=== PATIENT | male | born 1945 | race Caucasian/White ===

== ENCOUNTER 2019-04-24 22:26 | Emergency (ER) | payer MEDICARE, OTHER ==
[~2019-04-24] VITALS: Ht 182.9 cm; Wt 63.5 kg
[~2019-04-24 22:26] MED LIST: ACET325 PO; ALBU90OI INH; AMOX875 PO; ASPI81CH PO; COMBIVENT RESPIM4 GM INH; CULTURELLE1 EACH PO; EMERGEN-C 500500 MG; FERSU90EL PO; FINA5 PO; GABA100 PO; INSULANPEN SC; LEVSOD75 PO; METCAR500 PO; MORP30 PO; Mag-Al Plus Sus30 ML PO; NYST100000 PO; Nicoderm Cq1 EAC1 TD; Novolog Fl100 UNIT/1 SQ; OXYC10TA19 PO; Omeprazole20 M1 PO; SENN187 PO
== END 2019-04-25 00:35 | disposition home or self-care (01) ==
LOC: ER 22:26
DX: R13.10 Dysphagia, unspecified (principal); E86.0 Dehydration; Z79.82 Long term (current) use of aspirin; Z79.899 Other long term (current) drug therapy; Z79.4 Long term (current) use of insulin; E11.9 Type 2 diabetes mellitus without complications; F17.210 Nicotine dependence, cigarettes, uncomplicated
CPT/HCPCS: 70360; 99283-25

== ENCOUNTER 2019-06-18 22:58 | Inpatient (IN) | payer MEDICARE, OTHER ==
[~2019-06-18] VITALS: Ht 182.9 cm; Wt 108.0 kg
[2019-06-18 23:15] LABS: BASOPHILS ABSOLUTE AUTO 0.06 K/mm3 (0.00-0.23); BASOPHILS PERCENT AUTO 1 % (0-2); EOSINOPHILS ABSOLUTE AUTO 0.28 K/mm3 (0.00-0.68); EOSINOPHILS PERCENT AUTO 3 % (0-6); Hematocrit 35.2 % (37.0-53.0); Hemoglobin 11.5 g/dL (13.5-17.5); IMMATURE GRAN ABSOLUTE AUTO 0.06 K/mm3 (0.00-0.10); IMMATURE GRAN PERCENT AUTO 1 % (0-1); LYMPHOCYTES ABSOLUTE AUTO 2.05 K/mm3 (0.84-5.20); LYMPHOCYTES PERCENT AUTO 23 % (21-46); MONOCYTES ABSOLUTE AUTO 0.96 K/mm3 (0.16-1.47); MONOCYTES PERCENT AUTO 11 % (4-13); Mean Corpuscular HGB 31.9 pg (26.0-34.0); Mean Corpuscular HGB Conc 32.7 g/dL (31.5-36.5); Mean Corpuscular Volume 98 fL (80-100); Mean Platelet Volume 9.4 fL (9.1-12.4); NEUTROPHILS ABSOLUTE AUTO 5.55 K/mm3 (1.96-9.15); NEUTROPHILS PERCENT AUTO 62 % (41-73); Platelet Count 220 K/mm3 (150-400); RDW Standard Deviation 54.1 fL (35.1-46.3); White Blood Cell Count 8.96 K/mm3 (4.00-11.30)
[2019-06-18 23:31] LABS: Alanine Aminotransfer (ALT/SGP 17 U/L (12-78); Albumin, Blood 2.7 g/dL (3.4-5.0); Albumin/Globulin Ratio 0.8 (0.8-1.8); Alk Phos 97 U/L (50-136); Anion Gap 6 mmol/L (6-16); Aspartate Aminotrans (AST/SGOT 12 U/L (12-37); Bilirubin, Total <0.1 mg/dL (0.1-1.0); Blood Urea Nitrogen 22 mg/dL (8-24); Bun/Creatinine Ratio 22.7 (12.0-20.0); CO2, Blood 26 mmol/L (21-32); Calcium, Blood 8.1 mg/dL (8.5-10.1); Chloride, Blood 108 mmol/L (98-108); Creatinine, Blood 0.97 mg/dL (0.60-1.20); Globulin, Blood 3.6 g/dL (2.2-4.0); Glomerular Filtration Rate >60 (60-); Glucose, Blood 128 mg/dL (70-99); Potassium, Blood 4.1 mmol/L (3.5-5.5); Sodium, Blood 140 mmol/L (136-145); Total Protein, Blood 6.3 g/dL (6.4-8.2)
[2019-06-18 23:37] LABS: Source, Urine Clean Catch
[2019-06-18 23:40] LABS: Calcium, Ionized (POC) 1.11 mmol/L (1.10-1.46); Chloride (POC) 104 mmol/L (98-108); Glucose (ISTAT POC) 127 mg/dL (70-99); Hemoglobin (POC) 11.6 g/dL (13.5-17.5); Potassium (POC) 4.1 mmol/L (3.5-5.5); Sodium (POC) 137 mmol/L (135-148); Total CO2 (POC) 22 mmol/L (21-32)
[2019-06-18 23:40] LABS: Appearance, Urine Cloudy (Clear); Bilirubin, Urine Neg (Neg); Blood, Urine 3+ (Neg); Color, Urine Yellow (P-Yellow); Glucose Qualitative, Urine 3+ (Neg); Ketones, Urine Neg (Neg); Leukocyte Esterase, Urine 3+ (Neg); Nitrite, Urine Pos (Neg); Protein, Urine 1+ (Neg); Specific Gravity, Urine 1.015 (1.003-1.022); Urobilinogen, Urine NORM (Normal); pH, Urine 6.5 (5.0-8.0)
[2019-06-18 23:46] LABS: Bacteria Many /hpf; Red Blood Cells, Urine 0-2 /hpf (0-2); Squamous Epithelial Cells Rare /hpf (Few); White Blood Cells, Urine 50-100 /hpf (0-5)
--- NOTE | 2019-06-19 04:00 | NUR ---
ASSUMED CARE REPORT TAKEN FROM BALA JAMES. PT TO UNIT ON STRETCHER AND TRANSFERED TO HOSP BED PT DRAW SHEET. PT ABLE TO AWAKE AND ANSWER SHORT QUESTIONS. HAS SOME CONFUSION. PT FALLS BACK ASLEEP QUICKLY. PT LINEN AND CLOTHES SOILED ON ARRIVAL. ATTENDS REMOVED AND JELLY/BLOODY STOOL NOTED IN ATTENDS. PT ASKED FOR URINAL AND WAS ABLE TO USE URINAL W/ STAFF HELP. LINEN CHANGED UNDER PT AND NEW ATTENDS PLACED. AKA TO L LEG NOTED, STUMP HEALED WELL, PT DENIES PAIN. DENIES CP OR SOB. IVF STARTED IN PIV. RESP EVEN UNLABORED ON RA W/ SATS >95%. DENIES OTHER NEEDS. PT SLEEPING PEACFULLY. GIVEN OVIDIO LIGHT AND EDUCATED ON HOW TO USE TO CALL STAFF.
--- NOTE | 2019-06-19 05:52 | NUR ---
SHIFT SUMMARY PT SLEEPING IN ROOM COMFORTABLY AT THIS TIME. NO ACUTE CHANGES SINCE ARRIVAL. PT SLEEPING WELL. PT AOX2, FORGETFUL AT TIMES, APPEARS TO BE SLIGHTLY ALTERED. ANSWERS SHORT QUESTIONS APPROPRIATELY. DENIES PAIN AT THIS TIME. CONSULT CALLED IN FOR GI PROVIDER TO SEE PT THIS AM. PT HAS SMALL AMOUNT OF RED GELANTINOUS STOOL IN ATTENDS UPON ARRIVAL. PT CALLS FOR URINAL, ATTENDS IN PLACE FOR STRESS INCONTINENCE. DENIES SOB OR CP. RESP EVEN UNLABORED ON RA W/ SATS >95%. CALL LIGHT IN REACH. BED ALARM ON FOR SAFETY.
[2019-06-19 11:02] LABS: Hematocrit 37.1 % (37.0-53.0); Hemoglobin 11.8 g/dL (13.5-17.5); Mean Corpuscular HGB 31.6 pg (26.0-34.0); Mean Corpuscular HGB Conc 31.8 g/dL (31.5-36.5); Mean Corpuscular Volume 99 fL (80-100); Mean Platelet Volume 9.2 fL (9.1-12.4); Platelet Count 227 K/mm3 (150-400); RDW Coefficient Variation 14.9 % (11.7-14.2); RDW Standard Deviation 54.8 fL (35.1-46.3); Red Blood Cell Count 3.74 M/mm3 (4.30-5.90); White Blood Cell Count 7.54 K/mm3 (4.00-11.30)
--- NOTE | 2019-06-19 17:18 | NUR ---
SHIFT SUMMARY PT ALERT AND ORIENTED. VS STABLE. O2 SATS REMAIN ABOVE 90% ON RA. PT DENIES PAIN, BUT REPORTS SOME STOMACH DISCOMFORT. PT HAVING INCONTINENT RED JELLY STOOL THROUGHOUT SHIFT. PT TO START BOWEL PREP TONIGHT FOR COLONOSCOPY TOMORROW AFTERNOON. PT ON CLEAR LIQUIDS AND NPO AT MIDNIGHT. WILL CONTNIUE TO MONITOR AND REPORT TO ONCOMING RN. CALL LIGHT IN REACH.
[2019-06-19 21:13] LABS: Hematocrit 36.5 % (37.0-53.0); Hemoglobin 11.8 g/dL (13.5-17.5); Mean Corpuscular HGB 31.7 pg (26.0-34.0); Mean Corpuscular HGB Conc 32.3 g/dL (31.5-36.5); Mean Corpuscular Volume 98 fL (80-100); Mean Platelet Volume 9.1 fL (9.1-12.4); Platelet Count 206 K/mm3 (150-400); RDW Coefficient Variation 14.8 % (11.7-14.2); RDW Standard Deviation 53.6 fL (35.1-46.3); Red Blood Cell Count 3.72 M/mm3 (4.30-5.90); White Blood Cell Count 7.32 K/mm3 (4.00-11.30)
--- NOTE | 2019-06-20 10:30 | NUR ---
ASSUMED CARE PT ALERT AND ORIENTED. VS STABLE. HR SHOWS SINUS RICKY 40-60. BP STABLE. PT DENIES PAIN AT THIS TIME. [address] TO RIGHT RADIAL SITE. HEMATOMA NOTED FROM WRIST TO ELBOW. PT STATES IT LOOKS BETTER THAN IT DID IN THE [facility]. 14CC OF AIR IN EACH BAND. WILL CONTINUE TO MONITOR CLOSELY.
--- NOTE | 2019-06-20 11:45 | NUR ---
PT TAKEN TO DAY SURGERY FOR PROCEDURE. WILL AWAIT RETURN.
--- NOTE | 2019-06-20 11:59 | NUR ---
History, Chart, Medications and Allergies reviewed before start of procedure. Patient confirms NPO status and agrees with scheduled surgery. Lungs clear T/O to Auscultation. Pre-Op teaching done. Pt verbalizes understanding.
--- NOTE | 2019-06-20 12:24 | NUR ---
06/20/19 1224 Nikunj Mensah 3-LEAD EKG REVIEWED WITH PHYSICIAN PRIOR TO START OF PROCEDURE. History, Chart, Medications and Allergies reviewed before start of procedure. Patient confirms NPO status and agrees with scheduled surgery. O2 VIA N/C INTACT THROUGHOUT SEDATION/PROCEDURE.
--- NOTE | 2019-06-20 13:00 | NUR ---
PT RETURNED FROM DAY SURGERY. VS STABLE. PT DENIES ANY PAIN. PT ALERT AND ORIENTED. DR. HUTCHINS UPDATED. WILL CONTINUE TO MONITOR CLOSELY.
[2019-06-20 14:06] LABS: BASOPHILS ABSOLUTE AUTO 0.04 K/mm3 (0.00-0.23); BASOPHILS PERCENT AUTO 1 % (0-2); EOSINOPHILS PERCENT AUTO 4 % (0-6); Hematocrit 36.3 % (37.0-53.0); Hemoglobin 11.8 g/dL (13.5-17.5); IMMATURE GRAN ABSOLUTE AUTO 0.03 K/mm3 (0.00-0.10); IMMATURE GRAN PERCENT AUTO 0 % (0-1); LYMPHOCYTES ABSOLUTE AUTO 1.58 K/mm3 (0.84-5.20); LYMPHOCYTES PERCENT AUTO 22 % (21-46); MONOCYTES ABSOLUTE AUTO 0.79 K/mm3 (0.16-1.47); MONOCYTES PERCENT AUTO 11 % (4-13); Mean Corpuscular HGB 31.8 pg (26.0-34.0); Mean Corpuscular HGB Conc 32.5 g/dL (31.5-36.5); Mean Corpuscular Volume 98 fL (80-100); Mean Platelet Volume 9.3 fL (9.1-12.4); NEUTROPHILS ABSOLUTE AUTO 4.53 K/mm3 (1.96-9.15); NEUTROPHILS PERCENT AUTO 62 % (41-73); Platelet Count 208 K/mm3 (150-400); RDW Coefficient Variation 14.7 % (11.7-14.2); RDW Standard Deviation 53.1 fL (35.1-46.3); Red Blood Cell Count 3.71 M/mm3 (4.30-5.90); White Blood Cell Count 7.27 K/mm3 (4.00-11.30)
[2019-06-20 14:37] LABS: Alanine Aminotransfer (ALT/SGP 14 U/L (12-78); Albumin, Blood 2.7 g/dL (3.4-5.0); Albumin/Globulin Ratio 0.7 (0.8-1.8); Alk Phos 101 U/L (50-136); Anion Gap 7 mmol/L (6-16); Aspartate Aminotrans (AST/SGOT 12 U/L (12-37); Bilirubin, Total 0.4 mg/dL (0.1-1.0); Blood Urea Nitrogen 9 mg/dL (8-24); Bun/Creatinine Ratio 12.1 (12.0-20.0); CO2, Blood 26 mmol/L (21-32); Calcium, Blood 8.7 mg/dL (8.5-10.1); Chloride, Blood 107 mmol/L (98-108); Creatinine, Blood 0.74 mg/dL (0.60-1.20); Globulin, Blood 3.8 g/dL (2.2-4.0); Glomerular Filtration Rate >60 (60-); Glucose, Blood 121 mg/dL (70-99); Lactate Dehydrogenase (Ld),Bld 183 U/L (100-240); Potassium, Blood 3.9 mmol/L (3.5-5.5); Sodium, Blood 140 mmol/L (136-145); Total Protein, Blood 6.5 g/dL (6.4-8.2)
--- NOTE | 2019-06-20 16:42 | NUR ---
REPORT CALLED TO MEDICAL FLOOR RN. PT TO BE TAKEN UP WHEN ROOM IS CLEAN.
--- NOTE | 2019-06-21 04:52 | NUR ---
T/F AND SUMMARY: PT T/F'D FROM PCU AT 1948 AND WAS ORIENTED TO ROOM AND CALL SYSTEM. HE'S W/C BOUND AT BASELINE W/L.AKA AND WAS 1P ASSIST FROM CHAIR TO BED UPON T/F. THERE HAS BEEN NO EVIDENCE OF CONT'D GI BLEEDING POST COLONOSCOPY ON DAY SHIFT AND DX W/CHOLITIS. HE WAS MEDICATED W/ROXICODONE PRN X1 FOR TOLERABLE CONTROL OF BACK PAIN AND RECIEVED ZOFRAN X1 FOR RELIEF OF NAUSEA. IV ABX WERE RECIEVED THIS SHIFT AND PT SLEPT MAJORITY OF NOCTE. NO ACUTE CHANGES, VSS/AFEBRILE. WCTM AND REPORT TO DAY RN.
[2019-06-21] MEDS ORDERED: CEFD300 PO (13:09)
[2019-06-21] MEDS ORDERED: METR500 PO (13:10)
--- NOTE | 2019-06-21 14:40 | NUR ---
DISCHARGE NOTE PT DISCHARGED VIA [facility] TO [facility]. IV DISCONTINUED INTACT. ALL RX FAXED TO [facility] PRIOR TO DISCHARGE. PT VERBALIZED UNDERSTANDING OF DISCHARGE INSTRUCTIONS AND IMPORTANCE OF TAKING ALL MEDICATIONS PRESCRIBED.
[2019-06-28 14:07] LABS: ACT. PRT C RESIST W/FV DEFIC. 2.5 ratio (.); APTT 28.8 sec (.); DRVVT SCREEN SECONDS 38.5 sec (.); FACTOR VIII ACTIVITY 220 % (.); HEXAGONAL PHOSPHOLIPID NEUTRAL 7 sec (.); HOMOCYSTEINE 6.3 umol/L (.); PRT C ACTIVITY (CHROMOGENIC) 114 % (.)
== END 2019-06-21 14:36 | disposition home or self-care (01) | DRG 393 ==
LOC: ER 22:58 → PCU 06-19 03:41 → MEDS 06-19 03:41 → PCU 06-19 03:55 → MEDS 06-20 19:42 → ENPENDDIS 06-21 11:00 → MEDS 06-21 14:36
PROVIDERS: Emergency Medicine; Internal Medicine; Internal Medicine Gastroenterology; ADMIT Internal Medicine
PROC: 0DDM8ZX Extraction of Descending Colon, Via Natural or Artificial Opening Endoscopic, Diagnostic (ICD-10-PCS; principal; 2019-06-20 12:00)
DX: K55.039 Acute (reversible) ischemia of large intestine, extent unspecified (principal); G92 Toxic encephalopathy; Z79.82 Long term (current) use of aspirin; F17.210 Nicotine dependence, cigarettes, uncomplicated; R15.9 Full incontinence of feces; E11.51 Type 2 diabetes mellitus with diabetic peripheral angiopathy without gangrene; E03.9 Hypothyroidism, unspecified; J44.9 Chronic obstructive pulmonary disease, unspecified; I10 Essential (primary) hypertension; Z86.73 Personal history of transient ischemic attack (TIA), and cerebral infarction without residual deficits; Z89.612 Acquired absence of left leg above knee; D64.9 Anemia, unspecified; Z79.4 Long term (current) use of insulin
CPT/HCPCS: 36415; 51701; 74176; 80047; 80053; 81001; 81240; 82947; 83036; 83090; 83605; 83615; 84443; 85014; 85025; 85027; 85240; 85300; 85303; 85306; 85307; 85613; 85730; 85732; 86140; 86146; 86147; 87040; 87077; 87086; 88305; 94640; 94760; 96361-59; 96365-59; 99285-25; J0696; J1815; J2405; J2704; J7030; J7120